=== PATIENT | female | born 1965 | race Caucasian/White ===

== ENCOUNTER 2019-03-21 19:45 | Emergency (ER) | payer OTHER ==
--- NOTE | 2019-03-21 21:26 | EDM.PDOC ---
ED HPI GENERAL MEDICAL PROBLEM - General Chief Complaint: Skin Complaint Stated Complaint: LEG IS BLEEDING Time Seen by Provider: 03/21/19 21:00 Source of Information: Reports: Patient, Family - History of Present Illness INITIAL COMMENTS - FREE TEXT/NARRATIVE: Alert 53 yo female with peripheral varicose veins in bilateral legs. Patient scratched the area a few days ago resulting in a scab which she scratched again this evening resulting in significant bleeding with an arch. Patient and daughters wrapped the area and bleeding stopped at time of assessment. Patient takes Ibuprofen as needed for aches and pains. Patient is not on a blood thinner. - Related Data Allergies Allergy/AdvReac Type Severity Reaction Status Date / Time No Known Allergies Allergy Verified 03/21/19 20:31 Home Meds: Home Meds NK [No Known Home Meds] 03/21/19 [History] Past Medical History Musculoskeletal History: Reports: Back Pain, Chronic - Past Surgical History GI Surgical History: Reports: Appendectomy Female Surgical History: Reports: Hysterectomy Social & Family History - Tobacco Use Smoking Status *Q: Never Smoker ED ROS GENERAL - Review of Systems Review Of Systems: See Below ED EXAM, SKIN/RASH Exam: See Below Exam Limited By: No Limitations General Appearance: Alert, WD/WN, No Apparent Distress Eye Exam: Bilateral Eye: EOMI Ears: Normal External Exam Nose: Normal Inspection, Normal Mucosa Throat/Mouth: Normal Inspection, Normal Lips, No Airway Compromise Neck: Normal Inspection Respiratory/Chest: No Respiratory Distress, Normal Breath Sounds Cardiovascular: Normal Peripheral Pulses, Regular Rate, Rhythm Extremities: Other (superficial varicose vein bilateral legs with obvious scab with controled bleeding. Non-adherent dressing applied and kian wrap) Neurological: Alert, Oriented, CN II-XII Intact, Normal Cognition, Normal Gait, Normal Reflexes, No Motor/Sensory Deficits Psychiatric: Normal Affect, Normal Mood Skin: Warm, Dry Course - Vital Signs Last Recorded V/S: Last Vital Signs Temp 36.9 C 03/21/19 20:38 Pulse 75 03/21/19 20:38 Resp 14 03/21/19 20:38 BP 155/78 H 03/21/19 20:38 Pulse Ox 98 03/21/19 20:38 Departure - Departure Time of Disposition: 21:23 Disposition: Home, Self-Care 01 Clinical Impression: Bleeding from varicose veins of lower extremity - Discharge Information Instructions: Varicose Veins, Bleeding Varicose Veins Referrals: Quamme,Isma J, MD [Primary Care Provider] - Forms: ED Department Discharge Additional Instructions: 1. Keep Kian wrap in place tonight. 2. May remove in am to gentle wash leg. 3. Reapply Kian Wrap while up during the day. 4. May Kian Wrap at night. 5. Purchase compression stocking during the day to decrease vein dilation.
== END 2019-03-21 21:45 | disposition home or self-care (01) ==
LOC: JP.ED 19:45
DX: I83.893 Varicose veins of bilateral lower extremities with other complications (principal)
CPT/HCPCS: 99282